=== PATIENT | male | born 1960 | race Caucasian/White ===

== ENCOUNTER 2023-05-03 13:57 | Emergency (ER) | payer OTHER | END 2023-05-03 16:32 | disposition home or self-care (01) | LOC: JP.ED 13:57 | DX: S00.261A Insect bite (nonvenomous) of right eyelid and periocular area, initial encounter (principal); Z91.030 Bee allergy status; W57.XXXA Bitten or stung by nonvenomous insect and other nonvenomous arthropods, initial encounter | CPT/HCPCS: 99281 ==